=== PATIENT | female | born 1990 | race Caucasian/White ===

== ENCOUNTER 2019-02-06 16:35 | Outpatient (CLI) | payer BC, SELFPAY ==
[2019-02-06 17:11] VITALS: BP 127/70; PULSE 81; RESP 16; TEMP 36.7; O2SAT 97; BMI 37.1
[2019-02-06 17:46] LABS: Appearance,Urine CLEAR (Clear); Bilirubin,Urine Negative (Negative); Blood, Urine Negative (Negative); Color,Urine YELLOW (Yellow); Glucose,Urine (UA) Negative (Negative); Ketones,Urine Negative (Negative); Leukocyte Esterase,Urine TRACE (Negative); Microscopic, Urine URINE MICROSCOPIC (MICROSCOPIC); Nitrate,Urine Negative (Negative); PH,Urine 6.5 (5.0-8.5); Protein,Urine Negative (Negative); Specific Gravity, Urine <= 1.005 (1.005-1.030); Urobilinogen,Urine 0.2 EU/dl (0.2)
[2019-02-06 17:55] LABS: Bacteria,Urine Trace /lpf; RBC,Urine Occasional #/hpf (0-3)
[2019-02-06 18:00] LABS: Amphetamine/Metha Screen,Urine Negative ng/mL (<1000); Barbiturates Screen,Urine Negative ng/mL (<200); Benzodiazepines Screen,Urine Negative ng/mL (<200); Cannabinoid Screen,Urine Negative ng/mL (<50); Cocaine Screen,Urine Negative ng/mL (<300); Methadone Screen,Urine Negative ng/mL (<300); Opiate Screen,Urine Negative ng/mL (<300); Phencyclidine Screen,Urine Negative ng/mL (<25)
== END 2019-02-06 18:15 | disposition home or self-care (01) ==
LOC: OBOUT 16:36 → OB 16:37
PROVIDERS: Visit Provider Nurse Practitioner Obstetrics & Gynecology
DX: O47.03 False labor before 37 completed weeks of gestation, third trimester (principal); Z3A.36 36 weeks gestation of pregnancy
CPT/HCPCS: 80305; 81001

== ENCOUNTER → 2019-02-10 17:28 | Outpatient (CLI) | payer BC, SELFPAY | PROVIDERS: Visit Provider Obstetrics & Gynecology | DX: Z34.90 Encounter for supervision of normal pregnancy, unspecified, unspecified trimester (principal) | CPT/HCPCS: 86403 ==

== ENCOUNTER 2019-03-04 04:47 | Inpatient (IN) ==
[2019-03-04 07:06] LABS: Microscopic, Urine URINE MICROSCOPIC (MICROSCOPIC)
[2019-03-04 07:07] LABS: Basophils % 0.2 % (0.1-2.0); Eosinophils # 0.1 K/mm3 (0.0-0.4); Eosinophils % 0.9 % (0.1-12.0); Hemoglobin 10.4 g/dL (12.2-16.2); Lymphocytes # 1.5 K/mm3 (0.7-4.5); Mean Corpuscular HGB Conc 32.6 g/dL (31.8-35.4); Mean Corpuscular Volume 85.3 fl (81-99); Mean Platelet Volume 12.3 fl (7.4-10.4); Monocytes # 0.4 K/mm3 (0.1-1.0); Monocytes % 4.8 % (1.7-9.3); Neutrophils # 6.5 K/mm3 (1.8-7.8); Neutrophils % 76.1 % (37.0-80.0); Platelet Count 153 K/mm3 (142-424); Red Blood Count 3.75 M/mm3 (4.20-5.40); Red Cell Distribution Width 15.6 % (11.5-17.5); White Blood Count 8.6 K/mm3 (4.8-10.8)
[2019-03-04 07:10] LABS: Appearance,Urine SL CLOUDY (Clear); Blood, Urine Negative (Negative); Color,Urine DK YELLOW (Yellow); Glucose,Urine (UA) Negative (Negative); Ketones,Urine TRACE (Negative); Leukocyte Esterase,Urine TRACE (Negative); PH,Urine 6.5 (5.0-8.5); Protein,Urine TRACE (Negative); Specific Gravity, Urine 1.025 (1.005-1.030)
[2019-03-04 07:16] LABS: Bilirubin,Urine Negative (Negative)
[2019-03-04 07:17] LABS: Amphetamine/Metha Screen,Urine Negative ng/mL (<1000); Barbiturates Screen,Urine Negative ng/mL (<200); Benzodiazepines Screen,Urine Negative ng/mL (<200); Cannabinoid Screen,Urine Negative ng/mL (<50); Cocaine Screen,Urine Negative ng/mL (<300); Methadone Screen,Urine Negative ng/mL (<300); Opiate Screen,Urine Negative ng/mL (<300); Phencyclidine Screen,Urine Negative ng/mL (<25)
[2019-03-04 07:25] LABS: Bacteria,Urine 1+ /lpf; Squamous Epithelial Cell,Urine 20-50 #/hpf (0-5)
--- NOTE | 2019-03-04 17:39 | Procedure Note ---
- Delivery Note Delivery Date:: 03/04/19 Delivery Time:: 16:27 Anesthesia Type: None Was labor medically induced?: Yes Induction method: per pitocin protocol Gestational age (weeks): 39 Infant delivered prior to 39 weeks?: No Gender: Female at 1 minute: 9 at 5 minutes: 9 Delivery Procedure:: Spontaneous vaginal delivery of liveborn female infant over intact perineum. Delivery uncomplicated No nuchal cord or shoulder dystocia with delivery placed in NELI with mother immediately after umbilical cord clamped/cut, with standard nursing assessment performed Infant Apgars: 9 & 9 Placenta spontaneously expressed and examined; noted to be complete/intact. Vulva, vagina, and cervix inspected; no lacerations present EBL: 300 cc All sponge/needle/instrument counts correct at conclusion of procedure Disposition: Mom/baby stable to recovery in LDRP Placental Delivery Description: Spontaneous
[2019-03-05 07:46] LABS: Hematocrit 32.1 % (37.0-47.0); Hemoglobin 10.1 g/dL (12.2-16.2)
--- OUTSIDE RECORDS SUMMARY | 2019-03-05 10:50 | External Medical Summary | Continuity of Care Document ---
:1990 Author Organization [facility] Address [address] [employer] Phone Care Team Providers Name Role Phone Kiarra Bee Primary Care Provider Provider Primary Care Provider Unavailable Yo Attending Provider Alfred Attending Provider Kiarra Bee Attending Provider Allergies, Adverse Reactions, Alerts Allergen Type Severity Reaction Last Verified Status Updated amoxicillin Allergy Yes Active Medications Medication Status Dose Units Route Sig Qty Days Start End Instruct ions Date Date Vit Active 1 TAB Oral Daily January Calc,Iron,Fo 2018 3:01pm Problems Active Problems Medical Problem Onset Date Status 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 Otitis media Active Active Active Sinusitis Active Viral illness Active Procedures Procedure Date Performed Status Urine Culture March 04, 2019 active Group B Streptococcus Screen February 10, 2019 completed (VICKY) Relevant Diagnostic Tests and/or Laboratory Data Laboratory Results Test Date/Time Result Interpretation Reference Result Perfo rming Range Comment Site Urine Color January Indu 2018 10:21am Urine Appearance January Clear 2018 10:21am Urine Glucose January Negative (UA) 2018 10:21am Urine Bilirubin January negative 2018 10:21am Urine Ketones January Negative 2018 mg/dL 10:21am Urine Protein January Negative 2018 10:21am Urine pH November 6.5 2018 10:21am Urine Blood January negative 2018 10:21am Urine Specific January 29.020 [place] 2018 10:21am Urine November 1 Urobilinogen 2018 Dipstick 10:21am Urine Nitrate January Negative 2018 10:21am Urine Leukocyte January Negative Esterase 2018 10:21am White Blood Count February 8.6 K/mm3 4.8-10.8 [facility], [address] [place] [address] [address] [place] [address] 7:00am Red Blood Count February 3.75 M/mm3 4.20-5.40 [facility], [address] [place] [address] [address] [place] [address] 7:00am Hemoglobin February 10.1 g/dL 12.2-16.2 [facility], [address] [place] [address] [address] [place] [address] 7:15am Hematocrit February 32.1 % 37.0-47.0 [facility], [address] [place] [address] 36 [address] [place] [address] 7:15am Mean Corpuscular February 85.3 fl 81-99 [facility], [address] [place] [address] E Volume 2018 [place] [address] 7:00am Mean Corpuscular February 27.8 pg 27.0-31.2 [facility], [address] [place] [address] 36 E Hemoglobin 2018 [place] [address] 7:00am Mean Corpuscular February 32.6 g/dL 31.8-35.4 [facility], [address] [place] [address] 36 E Hemoglobin 2018 [place] [address] Concent 7:00am Red Cell February 15.6 % 11.5-17.5 [facility], [address] [place] [address] 36 E Distribution 2018 [place] [address] Width 7:00am Platelet Count February 153 K/mm3 142-424 [facility], [address] [place] [address] 36 [address] [place] [address] 7:00am Mean Platelet February 12.3 fl 7.4-10.4 [facility], [address] [place] [address] 36 E Volume 2018 [place] [address] 7:00am Neutrophils (%) Nacho 76.1 % 37.0-80.0 [facility], [address] [place] [address] E (Auto) 2018 [place] [address] 7:00am Lymphocytes (%) Nacho 18.0 % 10-50 [facility], [address] [place] [address] E (Auto) 2018 [place] [address] 7:00am Monocytes (%) Nacho 4.8 % 1.7-9.3 [facility], [address] [place] [address] E (Auto) 2018 [place] [address] 7:00am Eosinophils (%) Nacho 0.9 % 0.1-12.0 [facility], [address] [place] [address] E (Auto) 2018 [place] [address] 7:00am Basophils (%) Nacho 0.2 % 0.1-2.0 [facility], [address] [place] [address] E (Auto) 2018 [place] 7:00am Neutrophils # February 6.5 K/mm3 1.8-7.8 [facility], [address] [place] [address] E (Auto) 2018 [place] Gallo31 7:00am Lymphocytes # February 1.5 K/mm3 0.7-4.5 [facility], [address] [place] [address] E (Auto) 2018 Lexus Germain 7:00am Monocytes # February 0.4 K/mm3 0.1-1.0 [facility], [address] [place] [address] E (Auto) 2018 Lexus Gallo31 7:00am Eosinophils # February 0.1 K/mm3 0.0-0.4 [facility], [address] [place] [address] 36 E (Auto) 2018 [place] [address] 7:00am Basophils # February 0.0 K/mm3 0-0.2 [facility], [address] [place] [address] E (Auto) 2018 Lexus Gallo31 7:00am Urine Color November Yellow Yellow [facility], [address] [place] [address] 36 E 2018 Lexus Gallo31 4:45pm Urine Color Nacho Dk yellow Yellow [facility], [address] [place] [address] 36 E 2018 [place] [address] 7:00am Urine Appearance November Clear Clear [facility], [address] [place] [address] 36 [address] [place] [address] 4:45pm Urine Appearance Nacho Sl cloudy Clear [facility], [address] [place] [address] 36 E 2018 [place] [address] 7:00am Urine pH November 6.5 5.0-8.5 [facility], [address] [place] [address] 36 E 2018 [place] [address] 4:45pm Urine pH Nacho 6.5 5.0-8.5 [facility], [address] [place] [address] 36 E 2018 [place] [address] 7:00am Urine Specific November <= 1.005 1.005-1.03 [facility], [address] [place] [address] 36 E [place] 2018 0 [place] [address] 4:45pm Urine Specific Nacho 1.025 1.005-1.03 [facility], [address] [place] [address] 36 E [place] 2018 0 [place] [address] 7:00am Urine Protein November Negative Negative [facility], [address] [place] [address] 36 E 2018 [place] [address] 4:45pm Urine Protein Nacho Trace Negative [facility], [address] [place] [address] 36 E 2018 [place] [address] 7:00am Urine Glucose November Negative Negative [facility], [address] [place] [address] 36 E (UA) 2018 [place] [address] 4:45pm Urine Glucose Nacho Negative Negative [facility], [address] [place] [address] 36 E (UA) 2018 [place] [address] 7:00am Urine Ketones November Negative Negative [facility], [address] [place] [address] 36 E 2018 [place] [address] 4:45pm Urine Ketones Nacho Trace Negative [facility], [address] [place] [address] 36 E 2018 [place] [address] 7:00am Urine Blood November Negative Negative [facility], [address] [place] [address] 36 E 2018 [place] [address] 4:45pm Urine Blood Nacho Negative Negative [facility], [address] [place] [address] 36 E 2018 [place] [address] 7:00am Urine Nitrate November Negative Negative [facility], [address] [place] [address] 36 E 2018 [place] [address] 4:45pm Urine Nitrate Nacho Negative Negative [facility], [address] [place] [address] 36 E 2018 [place] [address] 7:00am Urine Bilirubin November Negative Negative [facility], [address] [place] [address] 36 E 2018 [place] [address] 4:45pm Urine Bilirubin Nacho Negative Negative CONFIRM [facility], [address] [place] [address] 36 E 2018 BILIRUBIN [place] [address] 7:00am RESULT WITH ICTOTEST: NEG Urine November 0.2 EU/dl [facility], [address] [place] [address] 36 E Urobilinogen 2018 [place] [address] 4:45pm Urine Nacho 2.0 EU/dl [facility], [address] [place] [address] 36 E Urobilinogen 2018 Auradarion [place] [address] 7:00am Urine Leukocyte November Trace Negative [facility], [address] [place] [address] E Esterase 2018 [place] [address] 4:45pm Urine Leukocyte Nacho Trace Negative [facility], [address] [place] [address] 36 E Esterase 2018 [place] [address] 7:00am Urine RBC November Occasional [facility], [address] [place] [address] 36 E 2018 #/hpf [place] [address] 4:45pm Urine RBC Nacho None #/hpf [facility], [address] [place] [address] E 2018 [place] [address] 7:00am Urine WBC January 3-5 #/hpf [facility], [address] [place] [address] 36 E 2018 [place] [address] 4:45pm Urine WBC Nacho 10-20 #/hpf [facility], [address] [place] [address] 36 E 2018 [place] [address] 7:00am Urine Squamous November 5-10 #/hpf [facility], [address] [place] [address] 36 E Epithelial Cells 2018 Eileen farah [place] [address] 4:45pm Urine Squamous Nacoh 20-50 #/hpf [facility], [address] [place] [address] 36 E Epithelial Cells 2018 Eileen [place] [address] 7:00am Urine Bacteria November Trace /lpf NONE [facility], [address] [place] [address] E 2018 [place] [address] 4:45pm Urine Bacteria Nacho 1+ /lpf NONE [facility], [address] [place] [address] 36 E [address] [place] [address] 7:00am Urine Opiates November Negative [facility], [address] [place] [address] E Screen 2018 ng/[place] [address] 4:45pm Urine Opiates Nacho Negative [facility], [address] [place] [address] E Screen 2018 ng/[place] [address] 7:00am Urine Barbituates November Negative [facility], [address] [place] [address] E Screen 2018 ng/[place] [address] 4:45pm Urine Barbituates Nacho Negative [facility], [address] [place] [address] E Screen 2018 ng/[place] [address] 7:00am Urine November Negative [facility], [address] [place] [address] E Phencyclidine 2018 ng/[place] [address] Screen 4:45pm Urine Nacho Negative [facility], [address] [place] [address] E Phencyclidine 2018 ng/[place] [address] Screen 7:00am Urine November Negative [facility], [address] [place] [address] E Amphetamines 2018 ng/[place] [address] Screen 4:45pm Urine Nacho Negative [facility], [address] [place] [address] E Amphetamines 2018 ng/[place] [address] Screen 7:00am Urine Methadone November Negative [facility], [address] [place] [address] E Screen 2018 ng/[place] [address] 4:45pm Urine Methadone Nacho Negative [facility], [address] [place] [address] E Screen 2018 ng/[place] [address] 7:00am Urine November Negative [facility], [address] [place] [address] E Benzodiazepines 2018 ng/[place] [address] Screen 4:45pm Urine Nacho Negative [facility], [address] [place] [address] E Benzodiazepines 2018 ng/[place] [address] Screen 7:00am Urine Cocaine November Negative [facility], [address] [facility] 36 E Screen 2018 ng/[place] [address] 4:45pm Urine Cocaine February Negative [facility], [address] [place] [address] 36 E Screen 2018 ng/[place] [address] 7:00am Urine Marijuana January Negative [facility], [address] [place] [address] 36 E (THC) Screen 2018 ng/[place] [address] 4:45pm Urine Marijuana February Negative [facility], [address] [place] [address] 36 E (THC) Screen 2018 ng/[place] [address] 7:00am Microbiology Results Procedure Source Result Collection Result Result Performin g Date/Time Date/Time Comment Site Group B Vaginal Negative January [facility], [address] [place] [address] 36 E Streptococcus for Group B 2018 [place] [address] Screen (VICKY) Streptococc 2:43pm 7:09am us. Health Concerns Concerns [facility] POST CARE Advance Directives Advance Directive Response Recorded Date/Time Does the patient have an No February 17, 2019 4:48pm advanced directive on file? Living Will No February 17, 2019 4:48pm Does the patient have an No February 10, 2019 3:01pm advanced directive on file? Living Will No February 10, 2019 3:01pm Chief Complaint and Reason for Visit Chief Complaint upper Resp NST Due date 03/06 contractio [facility] OB OFFICE DROP OFF Induction Encounters Encounter Location(s) Arrival/Admit Date Discharge/Depart Date Provider(s) Departed [facility] Physician January 18, 2019 January 18, 2019 [facility] 3:06pm 3:42pm Treatment Center Departed [facility] Physician February 06, 2019 February 06, 2019 [facility] 4:35pm 6:15pm MD Outpatient Service Departed [facility] Physician February 10, February 10, 2019 Paige Simon Physician/[facility] 2019 2:38pm 3:41pm [facility] Health Yo Visit Registered [facility] Physician February 10, [facility] Drop 2018 5:28pm MD Off to [facility] Departed [facility] Physician February 17, February 17, 2019 Paige Simon , Physician/[facility] 2018 1:55pm 2:23pm MD Carson Visit Registered [facility] Physician February 18, Paige Simon , Inpatient Group-Women[facility] 2018 10:21am MD Verónica Ram Admitted [facility] Physician March 04, 2019 Paige gonzalez , Inpatient Group-Obstetric 5:59am Registered [facility] Physician March 05, 2019 Sharath S Inpatient Group- 10:38am MD Rohit Assessments See care plan goalsSee care plan goals Functional Status Observation Response Date Recorded Functional status ambulatory February 17, 2019 4:48pm Functional status ambulatory February 10, 2019 3:01pm Goals Acute Goals Nursing Diagnosis: Knowledge Deficit D isease/Condition Goal(s): Education of di sease process Instruction(s): Follow provider p anum/instructions (See attached discharge education) Follow/up with primary care provider as instructed in discharge packet Nursing Diagnosis: Knowledge Deficit D isease/Condition Goal(s): Education of di sease process Instruction(s): Follow provider p anum/instructions (See attached discharge education) Follow/up with primary care provider as instructed in discharge packet Mental Status Observation Response Date Recorded Able to Read Yes March 04, 2019 6 :32am Able to Write Yes March 04, 2019 6 :32am Able to Read Yes February 06, 2019 5 :11pm Able to Write Yes February 06, 2019 5 :11pm Medical Equipment No Medical Equipment Information available Insurance Providers Guarantor Lizeth Cullen Address [address] [place] [address] [place] [address] Contact Info. Home Phone: Payer Policy Id Coverage Id Subscriber's Subscriber Id Effective E xpiration Name Date Date [place] [id number] Lizeth [id number] Claims [id number] Stephanie Alyse Self Pay Self N/A Plan of Treatment Follow up as ordered by primary care provider Follow up as ordered by primary care provider RTO 1 wk IOL scheduled at 39 wks kick counts labor precautions Future Tests Future scheduled test information is unavailable Pending Tests Pending diagnostic test information is unavailable Future Visits Future appointment information is unavailable Referrals to Other Providers Reason for Referral Start Provider Provider Contact Provider Address Referral Date Information Admission to [facility] March [address] [place] [address] Future Procedures Future procedure information is unavailable Future Medications Future medication information is unavailable Patient Instructions Sinusitis DI for Sinusitis How to Do Kick Counts Antepartum Care Diet Diet Depression Hemorrhage [facility] Post Discharge Instructions Social History Observation Status Date of Observation Patient currently February 10, 2019 Assigned Sex Female Vital Signs Vital Reading Result Reference Range Collection Date/ Time Height 182.88 cm January 18 3:07pm Weight 120.20 kg January 18 3:07pm Body Temperature 98.1 [degF] 97.6-99.6 January 18, 2 019 3:41pm Heart Rate 112 /min -January 18 3:41pm Respiratory rate 22 /min -January 18, 2 019 3:41pm Oxygen saturation by 98 % 95-100 December Pulse oximetry 3:07pm BP Systolic 135 mm[Hg] 110-140 January 18 3:41pm BP Diastolic 68 mm[Hg] 60-90 January 18 3:41pm BMI (Body Mass Index) 35.9 kg/m2 January 182018 3:07pm Height 182.88 cm February 06 5:11pm Weight 124.22 kg February 06 5:11pm Body Temperature 98.0 [degF] 97.6-99.6 February 06, 2 019 5:11pm Heart Rate 81 /min February 06 5:11pm Respiratory rate 16 /min 03-23February 06, 2 019 5:11pm Oxygen saturation by 97 % 95-100 January Pulse oximetry 5:11pm BP Systolic 127 mm[Hg] 110-140 February 06 5:11pm BP Diastolic 70 mm[Hg] 60-90 February 06 5:11pm BMI (Body Mass Index) 37.1 kg/m2 February 062018 5:11pm Height 182.88 cm February 10, 2 019 2:49pm Weight 125.19 kg February 10, 2 019 2:49pm BP Systolic 118 mm[Hg] 110-140 February 10, 2 019 2:49pm BP Diastolic 78 mm[Hg] 60-90 February 10, 2 019 2:49pm BMI (Body Mass Index) 37.4 kg/m2 January 292018 2:49pm Height 182.88 cm February 17 019 2:00pm Weight 124.28 kg February 17, 019 2:00pm BP Systolic 118 mm[Hg] 110-140 February 17, 2 019 2:00pm BP Diastolic 80 mm[Hg] 60-90 February 17, 019 2:00pm BMI (Body Mass Index) 37.1 kg/m2 January 302018 2:00pm Height 182.88 cm March 04 6:32am Weight 124.73 kg March 04 6:32am Body Temperature 98.4 [degF] 97.6-99.6 March 05, 019 8:30am Heart Rate 84 /min -March 05 8:30am Respiratory rate 17 /min -March 05, 8:30am Oxygen saturation by 98 % 95-100 February Pulse oximetry 8:30am BP Systolic 124 mm[Hg] 110-140 March 05 8:30am BP Diastolic 60 mm[Hg] 60-90 March 05 8:30am BMI (Body Mass Index) 37.3 kg/m2 March 042018 6:32am Hospital Discharge Instructions Additional Instructions Drink plenty of fluids. Take tylenol or ibuprofen for pain or fever. Take the antibiotics as directed. Follow up with your regular doctor. GO TO THE ER FOR ANY WORSENING SYMPTOMS
[2019-03-05 12:09] VITALS: BP 122/66
--- NOTE | 2019-03-05 13:23 | Discharge Summary ---
General - General Admission date:: 03/04/19 Discharge date: 03/05/19 HPI HPI: Admitted for elective IOL at 39 wks Uncomplicated without anesthesia course uneventful Ambulating and voiding without difficulty Tolerating regular diet Discharge home on PPD #1 in stable condition Hospital Course Hospital Course: per HPI Objective Vital signs: Temp Pulse Resp BP Pulse Ox 98.0 F 72 17 122/66 97 03/05/19 12:06 03/05/19 12:06 03/05/19 12:06 03/05/19 12:06 03/05/19 12:06 Narrative: CONSTITUTIONAL: no acute distress HEENT: mucous membranes moist PULMONARY: breathing unlabored without audible wheezes CV: no tachycardia or visible JVD; normal LE peripheral pulses ABD: soft, NT/ND, no guarding : fundus firm at/below umbilicus SKIN: no visible rash or lesions EXT: 1+ edema LEs NEURO: alert/oriented, no altered mental status PSYCH: appropriate mood and demeanor without visible anxiety/depression Results Labs on day of discharge: Labs from last 24 hours 03/05/19 07:15 Hgb 10.1 L Hct 32.1 L Preliminary micro results at discharge 03/04/19 07:00 Urine Culture - Preliminary Urine,Clean Catch DS: Diagnosis - Discharge Diagnosis (1) Vaginal delivery Status: Acute Discharge Plan - Patient Discharge Instructions ACTIVITY: Continue current activity DIET: regular diet Additional Instructions: NO HEAVY LIFTING OR STRENUOUS ACTIVITY NOTHING IN VAGINA FOR [address] FOLLOW-UP WITH DR. POWELL ON 04/14/2019 @ 10:00 Patient Instructions: Depression, Hemorrhage, [facility] Post Discharge Instructions - Follow up Plan Disposition: Home, [facility] Medications: Home Medications Medication Instructions Recorded Confirmed Type 1 tab PO DAILY 02/10/19 03/04/19 History vitamin,calcium,abridszg-bxwm-shkqo acid tablet Ibuprofen [Motrin 400mg 800 mg PO Q6HP PRN #30 tab 03/05/19 Rx tablet] Prescriptions/Medication Reconciliation: New Ibuprofen [Motrin 400mg tablet] 800 mg PO Q6HP PRN #30 tab PRN Reason: Mild To Moderate Pain Continued vitamin,calcium,eooniqer-xqmy-yqwme acid tablet 1 tab PO DAILY - Problem Reconciliation Problems Reviewed?: Yes
== END 2019-03-05 19:33 | disposition home or self-care (01) | DRG 807 ==
LOC: OB 05:59
PROVIDERS: ADMIT Obstetrics & Gynecology; ATTEND Obstetrics & Gynecology
CPT/HCPCS: 36415; 59025; 80305; 81001; 85014; 85018; 85025; 86850; 87086; C1758; J0595

== ENCOUNTER 2019-10-25 14:20 | Emergency (ER) | payer BC, SELFPAY ==
[2019-10-25 14:44] VITALS: BP 136/78; PULSE 93; RESP 20; TEMP 36.8; O2SAT 98; BMI 37.7
--- NOTE | 2019-10-25 14:50 | HMH.EDUTC ---
[facility] [place] Disposition Clinical Impression: Viral illness, Common cold virus Disposition: Home, Self-Care Condition on Discharge: Good Instructions: DI for Viral Upper Respiratory Infection -- Adult Additional Instructions: No sign of a bacterial infection. Likely viral. Viruses can take 7-14 days to run their course. Nasal saline and bulb syringe or nose Brenda to remove nasal drainage to help with nasal congestion. Hard to eat, drink, sleep with nasal congestion so important to keep this cleaned out. Monitor temp. Tylenol or Motrin as needed for pain or fever Encourage fluids, water, Gatorade, Powerade, Pedialyte if /toddler/child Warm salt water gargles Warm fluids Sore throat lozenges Sleep elevated Humidifier/vaporizer Your covid swab sent low into like she walking around the and she said. These results are typically sent to the primary care. Be sure you follow-up in 2-3 days if no improvement so we can review the results and treat if necessary if you do not have a primary care, I recommend to get 1 but in the meantime, call for results. Follow-up immediately for new or worsening symptoms or no noticeable improvement over the next 48-72 hours. Referrals: Georgina Mejias PA [Primary Care Provider] - Forms: Work/School Release Time of Disposition: 15:15 Medical Decision Making - Ryan Inquiry Pt receiving controlled substance: No Vital Signs: 10/25/19 14:44 10/25/19 14:51 Temperature 98.2 F 98.2 F Temperature Source Oral Oral Pulse Rate 93 H Pulse Rate [Left] 93 H Respiratory Rate 20 20 Blood Pressure 136/78 Blood Pressure [Right Arm] 136/78 Blood Pressure Mean [Right Arm] 97 02 Sat by Pulse Oximetry 98 Oxygen Delivery Method Room Air Room Air Orders (Tests/Meds): ORDERS Category Date Time Status SARS-CoV-2, BRITNEY Stat Lab 10/25/19 14:50 Ordered [facility] [place] HPI - General Chief complaint: Urgent Treatment Center Stated complaint: sore throat fatigue headache runny nose cough Time Seen by Provider: 10/25/19 14:50 Source of Information: Patient Limitations: No Limitations Description of Symptoms (Recalled from Triage Doc. by RN): 28-year-old female presents for sore throat, clear nasal drainage, low-grade fever, fatigue, and cough since 3 AM. Patient states she has no known contacts that have been ill.denies sob, diarrhea HEENT Symptoms (Recalled from RN notes): Yes Resp Symptoms (Recalled from RN notes): Yes Skin Symptoms (Recalled from RN notes): No GI/ Symptoms (Recalled from RN notes): No MS Symptoms (Recalled from RN notes): No - Related Data Home Medications Medication Instructions Recorded Confirmed prenat.vits,john,[id number] 1 tab PO DAILY 02/10/19 03/04/19 Previous Rx's Medication Instructions Recorded Ibuprofen [Motrin 400mg 800 mg PO Q6HP PRN #30 tab 03/05/19 tablet] Allergies Allergy/AdvReac Type Severity Reaction Status Date / Time amoxicillin Allergy Verified 02/17/19 14:09 [facility] History - Hepatitis A Screen Attestation statement:: This patient has been screened for Hepatitis A risk factors. I have reviewed the patient's past medical history: Yes Medical History: Denies:: Diabetes Mellitus Type 1, Diabetes Mellitus Type 2 Laterality Cases: Bilateral: Tonsillectomy Other Surgeries: No: Amputation: No Fractures: Yes Comment: right arm and right leg, 2018, fracture - Social History Smoking Status: Former smoker Alcohol Intake: never Substance Use Type: denies use Occupational Status: employed Household Members: spouse Family Hx:: No significant family history ROS Obtained: Yes Systems reviewed as appropriate & no additional complaints - Constitutional Constitutional: Reports system reviewed and no additional complaints, except as docu, Reports body ache, Reports fatigue, Reports fever(s) - Eyes Eyes: Reports system reviewed and no additional complaints, except as docu, Denies blurry vision - ENT
[2019-10-25 14:51] VITALS: BP 136/78; PULSE 93; RESP 20; TEMP 36.8; O2SAT 98
[2019-10-27 13:17] LABS: Covid-19 Nasal PCR Sendout Lex NOT DETECTED
== END 2019-10-25 15:21 | disposition home or self-care (01) ==
PROVIDERS: Emergency Provider Nurse Practitioner Family; PCP Physician Assistant
DX: B34.9 Viral infection, unspecified (principal); J00 Acute nasopharyngitis [common cold]; Z87.891 Personal history of nicotine dependence; Z90.09 Acquired absence of other part of head and neck
CPT/HCPCS: 99201; U0004

== ENCOUNTER 2020-01-12 18:36 | Emergency (ER) | payer BC, SELFPAY ==
[2020-01-12 19:01] VITALS: BP 112/76; PULSE 88; RESP 18; TEMP 36.7; O2SAT 100; BMI 34.4
--- NOTE | 2020-01-12 19:31 | HMH.EDUTC ---
[facility] [place] Disposition Clinical Impression: Exposure to COVID-19 virus Disposition: Home, Self-Care Condition on Discharge: Good Instructions: Preventing the Spread of Coronavirus Discharge Instructions Additional Instructions: Drink plenty of fluids. Take tylenol for pain or fever. Follow up with your regular doctor. GO TO THE ER FOR ANY WORSENING SYMPTOMS FOLLOW THE DIRECTIONS ON THE COVID-19 HAND OUT THAT WE GAVE YOU REGARDING SELF-ISOLATION UNTIL YOU KNOW YOUR COVID-19 RESULTS Referrals: Georgina Mejias PA [Primary Care Provider] - Forms: Work/School Release Time of Disposition: 19:33 Medical Decision Making - Medical Records Medical records reviewed: No: I reviewed the patient's medical records. - Ryan Inquiry Pt receiving controlled substance: No Vital Signs: 01/12/20 19:01 01/12/20 19:46 Temperature 98.1 F 98.1 F Temperature Source Oral Oral Pulse Rate 88 Pulse Rate [Radial] 88 Respiratory Rate 18 18 Blood Pressure 112/76 Blood Pressure [Right Arm] 112/76 Blood Pressure Mean [Right Arm] 88 Blood Pressure Source Automatic Cuff Blood Pressure Source [Right Arm] Automatic Cuff Blood Pressure Position Sitting Blood Pressure Position [Right Arm] Sitting 02 Sat by Pulse Oximetry 100 Oxygen Delivery Method Room Air Room Air Orders (Tests/Meds): ORDERS Category Date Time Status Full Resp Panel w/COVID ([facility]) Routine Lab 01/12/20 18:58 Received [facility] [place] HPI - General Stated complaint: Want Covid Testing Time Seen by Provider: 01/12/20 19:15 Mode of Arrival: Ambulatory Source of Information: Patient Limitations: No Limitations Description of Symptoms (Recalled from Triage Doc. by RN): covid exposure HEENT Symptoms (Recalled from RN notes): No Resp Symptoms (Recalled from RN notes): No Skin Symptoms (Recalled from RN notes): No MS Symptoms (Recalled from RN notes): No Functional Status (Recalled from RN notes): wnl - History of Present Illness Provider Complaint: She states that she was exposed to covid-19 at her work. She denies any symptoms at this time. - Related Data Home Medications Medication Instructions Recorded Confirmed prenat.vits,john,[id number] 1 tab PO DAILY 02/10/19 03/04/19 Previous Rx's Medication Instructions Recorded Ibuprofen [Motrin 400mg 800 mg PO Q6HP PRN #30 tab 03/05/19 tablet] Allergies Allergy/AdvReac Type Severity Reaction Status Date / Time amoxicillin Allergy Verified 02/17/19 14:09 - Worker's Comp Is this a Worker's Comp case?: No [facility] History - Hepatitis A Screen Drug use history?: No High risk sexual behaviors?: No History of sexually transmitted infection?: No Currently employed?: No Childcare worker?: No Do you have indoor plumbing?: Yes Do you have electricity?: Yes Attestation statement:: This patient has been screened for Hepatitis A risk factors. I have reviewed the patient's past medical history: Yes Medical History: Denies:: Cancer, Diabetes Mellitus Type 1, Diabetes Mellitus Type 2, Internal Pacemaker, MRSA Laterality Cases: Bilateral: Tonsillectomy Other Surgeries: No: , Pacemaker Amputation: No Fractures: Yes Comment: right arm and right leg, 2018, fracture - Social History Smoking Status: Current every day smoker Tobacco Type: cigarettes # Packs/Day (cigarettes): 1 Alcohol Intake: never Substance Use Type: denies use Occupational Status: employed Housing: apartment Household Members: significant other Family Hx:: No significant family history ROS Obtained: Yes All systems reviewed & no additional complaints - Constitutional Constitutional: Reports system reviewed and no additional complaints, except as docu - Eyes Eyes: Reports system reviewed and no additional complaints, except as docu - ENT Ears, Nose, Mouth, and Throat: Reports system reviewed and no additional complaints, except as docu - Cardiovascular Cardiovascular: Reports
[2020-01-12 19:46] VITALS: BP 112/76; PULSE 88; RESP 18; TEMP 36.7; O2SAT 100
[2020-01-14 13:54] LABS: Covid-19 Nasal PCR Sendout Lex Not Detected
== END 2020-01-12 19:47 | disposition home or self-care (01) ==
PROVIDERS: Emergency Provider Nurse Practitioner Family; PCP Physician Assistant
DX: Z20.828 Contact with and (suspected) exposure to other viral communicable diseases (principal); F17.210 Nicotine dependence, cigarettes, uncomplicated
CPT/HCPCS: 87581; 87633; 87798; 99201; U0004

== ENCOUNTER → 2021-10-02 15:06 | Outpatient (CLI) | payer BC, SELFPAY ==
[2021-10-02 14:35] LABS: Basophils # 0.1 K/mm3 (0-0.2); Basophils % 1.2 % (0.1-2.0); Eosinophils # 0.2 K/mm3 (0.0-0.4); Eosinophils % 3.9 % (0.1-12.0); Hemoglobin 13.6 g/dL (12.2-16.2); Lymphocytes # 1.7 K/mm3 (0.7-4.5); Lymphocytes % 31.7 % (10-50); Mean Corpuscular HGB Conc 30.1 g/dL (31.8-35.4); Mean Corpuscular Hemoglobin 27.1 pg (27.0-31.2); Mean Corpuscular Volume 89.9 fl (81-99); Mean Platelet Volume 11.6 fl (7.4-10.4); Monocytes # 0.4 K/mm3 (0.1-1.0); Monocytes % 6.5 % (1.7-9.3); Neutrophils % 56.7 % (37.0-80.0); Platelet Count 193 K/mm3 (142-424); Red Blood Count 5.01 M/mm3 (4.20-5.40); Red Cell Distribution Width 14.1 % (11.5-17.5); White Blood Count 5.4 K/mm3 (4.8-10.8)
[2021-10-02 14:46] LABS: Alanine Aminotransferase 24 U/L (12-78); Albumin Level 4.1 g/dl (3.5-5.0); Albumin/Globulin Ratio 1.6 (1.1-1.8); Alkaline Phosphatase 92 U/L (38-126); Anion Gap 11.2 mEq/L (5-15); Aspartate Amino Transferase 29 U/L (14-36); Blood Urea Nitrogen 10 mg/dl (7-17); Calcium 8.7 mg/dl (8.4-10.2); Carbon Dioxide 26 mmol/L (22.0-30.0); Chloride 104 mmol/L (98-107); Chol/HDL Ratio 8.2 (1-3.5); Cholesterol 163 mg/dl (140-200); Estimated Glomerular Filt Rate 147 ml/min (>60); GFR (African American) 178 ML/MIN (>60); Globulin 2.6 g/dL (1.3-3.2); Glucose 101 mg/dl (74-100); HDL Cholesterol 20 mg/dl (40-60); Potassium 4.2 mmoL/L (3.5-5.1); Sodium 137 mmol/L (136-145); Total Protein,Serum 6.7 g/dl (6.3-8.2); Triglycerides 179 mg/dl (30-150); VLDL Cholesterol 36 mg/dL (0-40)
[2021-10-02 14:57] LABS: Direct LDL Cholesterol 106.03 mg/dL (100-129)
[2021-10-02 15:06] LABS: Bilirubin,Total < 0.1 mg/dl (0.2-1.3)
[2021-10-02 15:07] LABS: 25-OH Vitamin D, Total 18.6 ng/mL (30-100)
[2021-10-02 15:20] LABS: Thyroid Stimulating Hormone 1.54 uIU/mL (0.465-4.68)
== END ==
PROVIDERS: PCP Nurse Practitioner Family; Visit Provider Nurse Practitioner Family
DX: E03.9 Hypothyroidism, unspecified (principal); I10 Essential (primary) hypertension; E78.5 Hyperlipidemia, unspecified; R53.83 Other fatigue; E55.9 Vitamin D deficiency, unspecified
CPT/HCPCS: 80053; 80061; 82306; 84443; 85025